=== PATIENT | female | born 1965 | race Caucasian/White ===

== ENCOUNTER 2017-01-14 16:15 | Emergency (ER) | payer OTHER ==
--- NOTE | ~2017-01-14 | CR133 ---
[facility] A Service of [facility] RADIOLOGY TEXT RESULTS PATIENT: ASHWIN TAVERAS LOCATION: CFTX : 61 UNIT #: [id number] AGE: [address]: Sravan Rodriguez SEX: F ORDER DR: [id number] [facility] [address] [place], [place] [address] [id number] E MR#: [id number] Acc #: [id number] NAME: ASHWIN TAVERAS : 1965 SEX: F STUDY DATE/TIME: 01/14/2017 18:05 UNIT: [facility] ROOM: STUDY DESCRIPTION: CR Forearm 2 View Rt Attending Physician: Gino Rodriguez Ordering Physician: Ramona Rodriguez Primary Care Physician: Cosme Waggoner Jr., A.P.R.N. MEDICAL IMAGING REPORT This report is preliminary unless electronic signature is present EXAM Right forearm, 2 views. HISTORY Tripped over dog, fell today. Forearm pain. FINDINGS AP and lateral views of the forearm show no evidence of fracture or destructive bone lesion. No periosteal elevation is seen. No radiodense foreign bodies are noted. Adjacent soft tissue structures are normal. IMPRESSION Normal/negative right forearm. Dictated by... Thiago Garces M.D. THIS IS AN ELECTRONICALLY VERIFIED REPORT Thiago Garces M.D. at 01/17/2017 6:06 AM MAHOGANY/ebony TD: 01/14/2017 22:48 JOB #: [id number] MEDICAL IMAGING REPORT Page 1 of 1 COPY
--- NOTE | ~2017-01-14 | CR132 ---
[facility] A Service of [facility] & [facility] RADIOLOGY TEXT RESULTS PATIENT: ASHWIN TAVERAS LOCATION: CFTX : 61 UNIT #: [id number] AGE: [address]: Sravan Rodriguez SEX: F ORDER DR: [id number] [facility] [address] [place], [place] [address] [id number] E MR#: [id number] Acc #: [id number] NAME: ASHWIN TAVERAS. : 1965 SEX: F STUDY DATE/TIME: 01/14/2017 18:09 UNIT: [facility] ROOM: STUDY DESCRIPTION: CR Forearm 2 View Lt Attending Physician: Sravan Rodriguez Ordering Physician: Sravan Rodriguez Primary Care Physician: Cosme Waggoner Jr., A.P.R.N. MEDICAL IMAGING REPORT This report is preliminary unless electronic signature is present EXAM Left forearm series 01/14/2017 HISTORY Trauma. Tripped over her dog and fell. Bilateral forearm left wrist pain bilateral hand pain. Happened today. FINDINGS AP and lateral views of the left forearm show normal bony mineralization. No fracture or traumatic malalignment. The elbow and wrist joints appear intact. No soft tissue defect, subcutaneous air or radiodense foreign body. Dictated by... Luciano Hussein M.D. THIS IS AN ELECTRONICALLY VERIFIED REPORT Luciano Hussein M.D. at 01/18/2017 11:00 PM MOO/tami TD: 01/14/2017 23:23 JOB #: [id number] MEDICAL IMAGING REPORT Page 1 of 1 COPY
--- NOTE | ~2017-01-14 | CR142 ---
[facility] A Service of [facility] & [facility] RADIOLOGY TEXT RESULTS PATIENT: ASHWIN TAVERAS LOCATION: CFTX : 61 UNIT #: [id number] AGE: [address]: Sravan Rodriguez SEX: F ORDER DR: [id number] [facility] [address] [place], [place] [address] [id number] E MR#: [id number] Acc #: [id number] NAME: ASHWIN TAVERAS : 1965 SEX: F STUDY DATE/TIME: 01/14/2017 18:04 UNIT: [facility] ROOM: STUDY DESCRIPTION: CR Hand Min 3 Views Rt Attending Physician: Sravan Rodriguez Ordering Physician: Sravan Rodriguez Primary Care Physician: Cosme Waggoner Jr., A.P.R.N. MEDICAL IMAGING REPORT This report is preliminary unless electronic signature is present EXAM Right hand 3 views HISTORY Tripped over dog and fell today. FINDINGS 3 views of the right hand demonstrates no fracture dislocation. Minimal degenerative changes at the DIP joint second finger. Probable bone island base of the proximal phalanx fourth finger. IMPRESSION No acute findings Dictated by... Thiago Garces M.D. THIS IS AN ELECTRONICALLY VERIFIED REPORT Thiago Garces M.D. at 01/17/2017 6:06 AM MAHOGANY/tami TD: 01/14/2017 23:17 JOB #: [id number] MEDICAL IMAGING REPORT Page 1 of 1 COPY
--- NOTE | ~2017-01-14 | CR281 ---
[facility] A Service of [facility] RADIOLOGY TEXT RESULTS PATIENT: ASHWIN TAVERAS LOCATION: CFTX : 61 UNIT #: [id number] AGE: [address]: Sravan Rodriguez SEX: F ORDER DR: [id number] [facility] [address] [place] [address] [place], [place] [address] [id number] E MR#: [id number] Acc #: [id number] NAME: ASHWIN TAVERAS. : 1965 SEX: F STUDY DATE/TIME: 01/14/2017 18:08 UNIT: [facility] ROOM: STUDY DESCRIPTION: CR Wrist Min 3 View Lt Attending Physician: Sravan Rodriguez Ordering Physician: Sravan Rodriguez Primary Care Physician: Cosme Waggoner Jr., A.P.R.N. MEDICAL IMAGING REPORT This report is preliminary unless electronic signature is present EXAM Left foot series, 01/14/2017 HISTORY Trauma. Tripped over dog and fell. Bilateral hand, bilateral forearm left wrist pain. Happened today. FINDINGS AP lateral and oblique radiographs of the left wrist are presented. No fracture. No traumatic malalignment. Joint spaces appear intact. No soft tissue defect, subcutaneous air or radiodense foreign body. If patient has ongoing symptoms, consider followup imaging. Dictated by... Luciano Hussein M.D. THIS IS AN ELECTRONICALLY VERIFIED REPORT Luciano Hussein M.D. at 01/18/2017 11:00 PM MOO/shawn TD: 01/14/2017 23:04 JOB #: [id number] MEDICAL IMAGING REPORT Page 1 of 1 COPY
--- NOTE | ~2017-01-14 | CR141 ---
[facility] A Service of [facility] & [facility] RADIOLOGY TEXT RESULTS PATIENT: ASHWIN TAVERAS LOCATION: CFTX : 61 UNIT #: [id number] AGE: [address]: Sravna Rodriguez SEX: F ORDER DR: [id number] [facility] [address] [place], [place] [address] [id number] E MR#: [id number] Acc #: [id number] NAME: ASHWIN TAVERAS. : 1965 SEX: F STUDY DATE/TIME: 01/14/2017 18:06 UNIT: [facility] ROOM: STUDY DESCRIPTION: CR Hand Min 3 Views Lt Ordering Physician: Sravan Rodriguez Primary Care Physician: Cosme Waggoner Jr., A.P.R.N. MEDICAL IMAGING REPORT This report is preliminary unless electronic signature is present EXAM Left hand series 01/14/2017 HISTORY Trauma. Tripped over dog and fell today. Bilateral hand pain. FINDINGS AP, lateral and oblique radiographs of the left hand show normal bony mineralization. No traumatic fracture or malalignment. Joint spaces are intact. No soft tissue defect, subcutaneous air or radiodense foreign body. If patient has ongoing symptoms, consider follow-up imaging. Dictated by... Luciano Hussein M.D. THIS IS AN ELECTRONICALLY VERIFIED REPORT Luciano Hussein M.D. at 01/18/2017 10:59 PM MOO/manoj TD: 01/14/2017 22:54 JOB #: [id number] MEDICAL IMAGING REPORT Page 1 of 1 COPY
[~2017-01-14 16:15] MED LIST: NASONEX17 GM; PRILOSEC PO
== END 2017-01-14 19:31 | disposition home or self-care (01) ==
LOC: CED 16:15 → CFTX 16:15
DX: S50.12XA Contusion of left forearm, initial encounter (principal); S50.11XA Contusion of right forearm, initial encounter; S60.212A Contusion of left wrist, initial encounter; K21.9 Gastro-esophageal reflux disease without esophagitis; F17.210 Nicotine dependence, cigarettes, uncomplicated; Z88.5 Allergy status to narcotic agent; W18.09XA Striking against other object with subsequent fall, initial encounter; Y92.009 Unspecified place in unspecified non-institutional (private) residence as the place of occurrence of the external cause
CPT/HCPCS: 73090; 73110; 73130; 96372; 99284; J1885